=== PATIENT | male | born 1950 | race Caucasian/White ===

== ENCOUNTER 2018-03-30 15:26 | Observation (INO) | payer MEDICARE ==
[~2018-03-30] VITALS: Ht 175.3 cm; Wt 101.3 kg
[2018-03-30 16:31] VITALS: BP 136/71
[2018-03-30] MEDS ORDERED: VALS80TA3 PO (17:06)
[2018-03-30] MEDS ORDERED: TRAZ-137 PO (17:06)
[2018-03-30] MEDS ORDERED: ROSU5TAB PO (17:06)
[2018-03-30] MEDS ORDERED: PNEUMOCOCCAL 23 VACCINE IM-VACC ONE (17:30)
[2018-03-30] MEDS ORDERED: HEPARIN 5,000 UNITS/ML, 1ML ONE (17:57)
[2018-03-30] MEDS ORDERED: DOCUSATE 100 MG CAPSULE PO PRN (18:00)
[2018-03-30] MEDS ORDERED: ACETAMINOPHEN 325 MG TABLET PO PRN (18:00)
[2018-03-30] MEDS ORDERED: TRAZODONE 100MG TABLET PO PRN (18:00)
[2018-03-30] MEDS ORDERED: LABETALOL 5MG/ML, 20ML IVPush PRN (18:00)
[2018-03-30] MEDS ORDERED: POLYETHYLENE GLYCOL 17 GM PACKET PO PRN (18:00)
[2018-03-30] MEDS ORDERED: hydrALAzine 20 MG/ML, 1ML IVPush PRN (18:00)
[2018-03-30] MEDS ORDERED: ONDANSETRON 2MG/ML, 2ML IVPush PRN (18:00)
[2018-03-30] MEDS ORDERED: morphine SULFATE 10 MG/ML, 1ML IVPush PRN (18:00)
[2018-03-30] MEDS ORDERED: HYDROcodone/APAP 5/325 TABLET PO PRN (18:00)
[2018-03-30] MEDS ORDERED: ONDANSETRON ODT 4 MG PO PRN (18:00)
[2018-03-30] MEDS ORDERED: BISACODYL 10 MG SUPP PR PRN (18:00)
[2018-03-30] MEDS: SODIUM CHLORIDE 0.9% 1,000 ML IV SCH (18:31)
[2018-03-30] MEDS: HEPARIN 5,000 UNITS/ML, 1ML SQ SCH (18:36)
[2018-03-30 20:45] VITALS: BP 145/79
[2018-03-30] MEDS ORDERED: SIMVASTATIN 20 MG TABLET PO SCH (21:00)
[2018-03-31] MEDS ORDERED: FENTANYL PF 100 MCG/2ML ONE (00:47)
[2018-03-31] MEDS ORDERED: MIDAZOLAM 1 MG/ML, 2ML ONE (00:47)
[2018-03-31] MEDS ORDERED: ONDANSETRON 2MG/ML, 2ML ONE (01:35)
[2018-03-31] MEDS ORDERED: DEXAMETHASONE 4 MG/ML, 1ML ONE (01:35)
[2018-03-31] MEDS ORDERED: CEFAZOLIN 1,000 MG ONE (01:35)
[2018-03-31] MEDS ORDERED: PROPOFOL 10 MG/ML, 20ML ONE (01:35)
[2018-03-31] MEDS: HEPARIN 5,000 UNITS/ML, 1ML SQ SCH (02:00)
[2018-03-31] MEDS: SODIUM CHLORIDE 0.9% 1,000 ML IV SCH ×2 (03:00→09:06)
[2018-03-31] MEDS ORDERED: ONDANSETRON 2MG/ML, 2ML IV PRN (03:00)
[2018-03-31] MEDS ORDERED: PROMETHAZINE 25 MG/ML, 1ML IV PRN (03:00)
[2018-03-31] MEDS ORDERED: hydrALAzine 20 MG/ML, 1ML IV PRN (03:00)
[2018-03-31] MEDS ORDERED: ALBUTEROL SULFATE 2.5 MG/3 ML NPPB PRN (03:00)
[2018-03-31] MEDS ORDERED: MIDAZOLAM 1 MG/ML, 2ML IV PRN (03:00)
[2018-03-31] MEDS ORDERED: LABETALOL 5MG/ML, 20ML IV PRN (03:00)
[2018-03-31] MEDS ORDERED: HYDROcodone/APAP 7.5-325MG/15ML UDC PO PRN (03:00)
[2018-03-31] MEDS ORDERED: FENTANYL PF 100 MCG/2ML IV PRN (03:00)
[2018-03-31] MEDS ORDERED: ACETAMINOPHEN 325 MG TABLET PO PRN (03:00)
[2018-03-31] MEDS ORDERED: EPHEDRINE 50 MG/ML, 1ML IVPush PRN (03:00)
[2018-03-31] MEDS ORDERED: OXYcodone 5 MG/5 ML ORAL.SOL UDC PO PRN (03:00)
[2018-03-31] MEDS ORDERED: MEPERIDINE/PF 25MG/0.5ML IVPush PRN (03:00)
[2018-03-31] MEDS ORDERED: OXYcodone 5 MG/5 ML ORAL.SOL UDC ONE (03:04)
[2018-03-31] MEDS ORDERED: HYDROmorphone 2 MG/ML, 1ML ONE (03:12)
[2018-03-31] MEDS: HYDROmorphone 1 MG/ML, 1ML IV PRN ×2 (03:15→03:24)
[2018-03-31 03:58] VITALS: BP 145/80
[2018-03-31 04:27] LABS: MICROSCOPIC INDICATED
[2018-03-31 04:30] LABS: CULTURE INDICATED? YES
[2018-03-31] MEDS ORDERED: LACTATED RINGERS 1,000 ML IV SCH (05:00)
[2018-03-31 05:10] LABS: CHLORIDE 115 mmol/L (98-107)
[2018-03-31 05:11] LABS: BASOPHILS # (AUTO) 0.01 x10^3/uL (0-0.1); BASOPHILS % (AUTO) 0 % (0-1); EOSINOPHILS # (AUTO) 0.02 x10^3/uL (0-0.4); EOSINOPHILS % (AUTO) 0 % (1-7); LYMPHOCYTES # (AUTO) 0.61 x10^3/uL (1-3.4); LYMPHOCYTES % (AUTO) 7 % (22-44); MD NO; MEAN CORPUSCULAR HEMOGLOBIN 31.6 pg (27.5-34.5); MEAN CORPUSCULAR HGB CONC 33.7 g/dL (33.2-36.2); MEAN PLATELET VOLUME 8.3 fL (7.4-10.4); MONOCYTES # (AUTO) 0.17 x10^3/uL (0.2-0.8); MONOCYTES % (AUTO) 2 % (2-9); NEUTROPHILS # (AUTO) 8.38 x10^3/uL (1.8-6.8); NEUTROPHILS % (AUTO) 91 % (42-75); PLATELET COUNT 198 x10^3/uL (130-400); RED BLOOD COUNT 4.25 x10^6/uL (4.38-5.82); RED CELL DISTRIBUTION WIDTH 13.8 % (9.4-14.8)
[2018-03-31 05:17] LABS: ANION GAP 8 mmol/L (5-15); CALCIUM 8.4 mg/dL (8.5-10.1); CREATININE 1.45 mg/dL (0.7-1.3)
[2018-03-31 07:28] VITALS: BP 123/74
[2018-03-31] MEDS ORDERED: TAMSULOSIN 0.4 MG CAP.ER.24H PO SCH (09:00)
[2018-03-31] MEDS ORDERED: TAMS-11 PO (12:33)
[2018-03-31 13:00] VITALS: BP 139/79
== END 2018-03-31 13:40 | disposition home or self-care (01) ==
LOC: 4NOR 15:58 → INTOOBSV 15:58 → 4NOR 16:16 → DCLOUNGE 03-31 13:19
PROVIDERS: ADMIT Internal Medicine; ATTEND Internal Medicine
DX: N20.2 Calculus of kidney with calculus of ureter (principal); N17.9 Acute kidney failure, unspecified; I10 Essential (primary) hypertension; E78.5 Hyperlipidemia, unspecified; R79.89 Other specified abnormal findings of blood chemistry; Z79.899 Other long term (current) drug therapy; Z23 Encounter for immunization
CPT/HCPCS: 36415; 52356; 74018; 76000; 80048; 81001; 82360; 83735; 84100; 85025; 87086; 88300; 90732; 96372; 96374; C1758; C2617; G0009; G0378; J0690; J1100; J1170; J1644; J2250; J2270; J2405; J2704; J3010; J7030; J7120; 90471